=== PATIENT | female | born 1970 | race African-American/Black ===

== ENCOUNTER 2023-09-05 14:19 | Inpatient (IN) | payer MEDICAID ==
[~2023-09-05] VITALS: Ht 154.9 cm; Wt 44.5 kg
[2023-09-05 14:37] VITALS: BP 127/79; PULSE 116; RESP 16; TEMP 98.2; O2SAT 100
[2023-09-05 15:28] LABS: APPEARANCE,URINE CLOUDY (CLEAR); BILIRUBIN,URINE NEGATIVE (NEGATIVE); BLOOD, URINE 3+ (NEGATIVE); COLOR,URINE YELLOW (YELLOW); LEUKOCYTE ESTERASE ,URINE 3+ (NEGATIVE); NITRITE, URINE POSITIVE (NEGATIVE); PROTEIN,URINE 1+ (NEGATIVE); UGLUCOSE NEGATIVE (NEGATIVE); UROBILINOGEN,URINE 0.2 EU/dL (0.2 - 1)
[2023-09-05 15:44] LABS: BACTERIA,URINE None Seen /HPF (None Seen); MUCUS,URINE 1+ /LPF (None Seen); RBC,URINE TOO NUMEROUS TO COUN /HPF (0-5); SQUAMOUS EPITHELIAL CELL,UR 0-3 (FEW) /LPF (0-3 (FEW)); WBC,URINE TOO MANY TO COUNT /HPF (0-5)
[2023-09-05 16:22] LABS: BASOPHILS # (AUTO) 0.1 K/uL (0.00-0.22); BASOPHILS % (AUTO) 0.4 % (0.0-2.0); EOSINOPHILS # (AUTO) 0.2 K/uL (0-0.4); EOSINOPHILS % (AUTO) 1.3 % (0.0-4.0); LYMPHOCYTES # (AUTO) 1.6 K/uL (2.5-16.5); LYMPHOCYTES % (AUTO) 11.6 % (20.5-51.1); MEAN CORPUSCULAR HEMOGLOBIN 16 pg (27-31); MEAN CORPUSCULAR HGB CONC 28 g/dL (33-37); MEAN CORPUSCULAR VOLUME 57.5 fL (80-94); MONOCYTES # (AUTO) 1.1 K/uL (0.8-1.0); MONOCYTES % (AUTO) 8.3 % (1.7-9.3); NEUTROPHILS # (AUTO) 10.6 K/uL (1.8-7.7); NEUTROPHILS % (AUTO) 78.4 % (42.2-75.2); PLATELET COUNT (AUTO) 664 K/uL (140-450); RED BLOOD CELL COUNT(AUTO) 2.38 MIL/uL (4.20-5.40); RED CELL DISTRIBUTION WIDTH 21.2 % (11.6-13.7); WHITE BLOOD COUNT (AUTO) 13.5 K/uL (4.8-10.8)
[2023-09-05 16:31] LABS: ANION GAP 13.2 (8-16); CALCIUM 8.4 mg/dL (8.5-10.1); CARBON DIOXIDE 25.6 mmol/L (21-32); CREATININE 1.1 mg/dL (0.6-1.3); POTASSIUM 3.8 mmol/L (3.5-5.1)
[2023-09-05 16:34] LABS: HEMOGLOBIN 3.8 g/dL (12.0-16.0)
[2023-09-05 16:35] LABS: HEMATOCRIT 13.7 % (36-48)
[2023-09-05 16:40] LABS: ALBUMIN 2.6 g/dL (3.4-5.0); BILIRUBIN,DIRECT 0.1 mg/dL (0.0-0.3); TOTAL BILIRUBIN 0.3 mg/dL (0.0-1.0)
[2023-09-05] MEDS ORDERED: cefTRIAXone 2,000 MG VIAL ONE (17:14)
[2023-09-05 17:15] LABS: INR 0.98 (0.8-1.2); PARTIAL THROMBOPLASTIN TIME 23.5 secs (22-35.6); PROTHROMBIN TIME 10.3 secs (10.8-13.4)
[2023-09-05 17:20] LABS: LACTIC ACID 0.8 mmol/L (0.4-2.0)
[2023-09-05] MEDS: cefTRIAXone 2,000 MG in DEXTROSE 5% 100 ML IV ONE (17:31)
[2023-09-05] MEDS: NACL 0.9% 1,500 ML IV ONE (17:32)
[2023-09-05] MEDS ORDERED: MORPHINE SULFATE 2 MG/ML SYR IVP PRN (18:40)
[2023-09-05] MEDS ORDERED: LORazepam 2 MG/ML VIAL IVP PRN (18:40)
[2023-09-05] MEDS ORDERED: HYDROcodone/APAP 5/325 MG 1 TAB TAB PO PRN (18:40)
[2023-09-05] MEDS ORDERED: ONDANSETRON 4 MG/2 ML VIAL IVP PRN (18:40)
[2023-09-05] MEDS ORDERED: cefTRIAXone 1,000 MG VIAL ONE (19:31)
[2023-09-05] MEDS: NACL 0.9% 1,000 ML IV SCH (19:38)
[2023-09-05] MEDS: ACETAMINOPHEN 325 MG TAB PO PRN (19:56)
[2023-09-05 20:25] VITALS: PULSE 93; RESP 18; O2SAT 98
[2023-09-05 23:19] LABS: HEMATOCRIT 21.8 % (36-48)
[2023-09-05 23:22] LABS: HEMOGLOBIN 6.6 g/dL (12.0-16.0)
[2023-09-06 04:00] VITALS: BP 128/84; PULSE 84; PULSE 92; RESP 20; TEMP 97.2; O2SAT 98
[2023-09-06 07:59] VITALS: PULSE 92; RESP 20; O2SAT 99
[2023-09-06 08:00] VITALS: BP 135/78; PULSE 97; RESP 18; TEMP 97.7; O2SAT 99
[2023-09-06 11:40] LABS: BASOPHILS # (AUTO) 0.1 K/uL (0.00-0.22); BASOPHILS % (AUTO) 0.4 % (0.0-2.0); EOSINOPHILS # (AUTO) 0.1 K/uL (0-0.4); EOSINOPHILS % (AUTO) 0.4 % (0.0-4.0); HEMATOCRIT 24.8 % (36-48); LYMPHOCYTES # (AUTO) 0.9 K/uL (2.5-16.5); LYMPHOCYTES % (AUTO) 6.7 % (20.5-51.1); MEAN CORPUSCULAR HEMOGLOBIN 21 pg (27-31); MEAN CORPUSCULAR HGB CONC 31 g/dL (33-37); MEAN CORPUSCULAR VOLUME 68.3 fL (80-94); MONOCYTES # (AUTO) 1.1 K/uL (0.8-1.0); MONOCYTES % (AUTO) 7.8 % (1.7-9.3); NEUTROPHILS # (AUTO) 11.7 K/uL (1.8-7.7); NEUTROPHILS % (AUTO) 84.7 % (42.2-75.2); PLATELET COUNT (AUTO) 602 K/uL (140-450); RED BLOOD CELL COUNT(AUTO) 3.62 MIL/uL (4.20-5.40); RED CELL DISTRIBUTION WIDTH 31.5 % (11.6-13.7); WHITE BLOOD COUNT (AUTO) 13.9 K/uL (4.8-10.8)
[2023-09-06 11:44] LABS: HEMOGLOBIN 7.6 g/dL (12.0-16.0)
[2023-09-06 11:50] LABS: ANION GAP 12.8 (8-16); CALCIUM 8.8 mg/dL (8.5-10.1); CARBON DIOXIDE 25.7 mmol/L (21-32); CREATININE 1.1 mg/dL (0.6-1.3); POTASSIUM 3.5 mmol/L (3.5-5.1)
[2023-09-06] MEDS: SODIUM FERRIC GLUCONATE 125 MG in NACL 0.9% 100 ML IV SCH (11:56)
[2023-09-06 16:00] VITALS: BP 152/76; PULSE 98; RESP 18; TEMP 97.9; O2SAT 100
[2023-09-06 20:00] VITALS: BP 129/66; PULSE 96; RESP 18; TEMP 97.9; O2SAT 100
[2023-09-07] VITALS: BP 117/63; PULSE 95; RESP 18; TEMP 97.4; O2SAT 100
[2023-09-07 04:00] VITALS: BP 135/65; PULSE 87; RESP 18; TEMP 97; O2SAT 100
[2023-09-07 06:58] LABS: BASOPHILS # (AUTO) 0.1 K/uL (0.00-0.22); BASOPHILS % (AUTO) 0.5 % (0.0-2.0); EOSINOPHILS # (AUTO) 0.1 K/uL (0-0.4); HEMATOCRIT 24.4 % (36-48); HEMOGLOBIN 7.5 g/dL (12.0-16.0); LYMPHOCYTES # (AUTO) 1.5 K/uL (2.5-16.5); LYMPHOCYTES % (AUTO) 12.1 % (20.5-51.1); MEAN CORPUSCULAR HEMOGLOBIN 21 pg (27-31); MEAN CORPUSCULAR HGB CONC 31 g/dL (33-37); MEAN CORPUSCULAR VOLUME 69.3 fL (80-94); MONOCYTES # (AUTO) 0.9 K/uL (0.8-1.0); MONOCYTES % (AUTO) 7.2 % (1.7-9.3); NEUTROPHILS # (AUTO) 9.6 K/uL (1.8-7.7); NEUTROPHILS % (AUTO) 79.2 % (42.2-75.2); PLATELET COUNT (AUTO) 547 K/uL (140-450); RED BLOOD CELL COUNT(AUTO) 3.53 MIL/uL (4.20-5.40); RED CELL DISTRIBUTION WIDTH 31.1 % (11.6-13.7); WHITE BLOOD COUNT (AUTO) 12.1 K/uL (4.8-10.8)
[2023-09-07 07:15] LABS: ALBUMIN 2.4 g/dL (3.4-5.0); ANION GAP 10.2 (8-16); CALCIUM 8.7 mg/dL (8.5-10.1); CARBON DIOXIDE 25.6 mmol/L (21-32); POTASSIUM 3.8 mmol/L (3.5-5.1); TOTAL BILIRUBIN 0.4 mg/dL (0.0-1.0); TOTAL PROTEIN, SERUM 6.5 g/dL (6.4-8.2)
[2023-09-07 08:00] VITALS: BP 125/60; PULSE 87; RESP 20; TEMP 97.8; O2SAT 100
[2023-09-07 08:59] VITALS: PULSE 89; RESP 20; O2SAT 99
[2023-09-07] MEDS: PANTOPRAZOLE 40 MG INJ VIAL IVP SCH (11:33)
[2023-09-07] MEDS ORDERED: FERR325E14 PO (14:16)
[2023-09-07] MEDS ORDERED: NITR100C7 PO (14:16)
[2023-09-07 14:20] VITALS: BP 125/75; PULSE 68; RESP 20; TEMP 97.1
== END 2023-09-07 15:25 | disposition home or self-care (01) | DRG 240 ==
LOC: MED 14:19 → MMU 18:40 → MTU 20:05
PROVIDERS: ADMIT Student in an Organized Health Care Education/Training Program; ATTEND Student in an Organized Health Care Education/Training Program
PROC: 30233N1 Transfusion of Nonautologous Red Blood Cells into Peripheral Vein, Percutaneous Approach (ICD-10-PCS; principal; 2023-09-05)
DX: C18.9 Malignant neoplasm of colon, unspecified (principal); E44.0 Moderate protein-calorie malnutrition; N13.6 Pyonephrosis; R65.10 Systemic inflammatory response syndrome (SIRS) of non-infectious origin without acute organ dysfunction; N82.3 Fistula of vagina to large intestine; D63.0 Anemia in neoplastic disease; Z79.899 Other long term (current) drug therapy; Z68.1 Body mass index [BMI] 19.9 or less, adult
CPT/HCPCS: 36415; 36430; 80048; 80053; 80076; 81001; 83605; 85018; 85025; 85610; 85730; 86886; 86900; 86901; 86920; 87040; 87081; 87086; 87186; 87491; 96365; 99285; C9113; J0696; J2916; J7060; P9016